=== PATIENT | female | born 1995 | race Caucasian/White ===

== ENCOUNTER 2018-07-23 13:44 | Emergency (ER) | payer BC, OTHER, SELFPAY ==
[2018-07-23 13:48] VITALS: BP 107/75; PULSE 73; RESP 18; TEMP 36.4; O2SAT 100; BMI 23.8
--- NOTE | 2018-07-23 14:11 | DI.RAD.S_ITS ---
PROCEDURE: XR CHEST 1V INDICATIONS: chest pain TECHNIQUE: One view of the chest was acquired. COMPARISON: None. FINDINGS: Surgical changes and devices: None. Lungs and pleura: No pleural effusions or pneumothorax. Lungs are clear. Mediastinum: Mediastinal contours appear normal. Heart size is normal. Bones and chest wall: No suspicious bony lesions. Overlying soft tissues appear unremarkable. IMPRESSION: No definite acute cardiopulmonary process is evident. Dictated by: Wilton Holt M.D. on 07/23/2018 at 13:42 Approved by: Wilton Holt M.D. on 07/23/2018 at 13:44
[2018-07-23 14:27] LABS: INR 1.1 (0.9-1.3); Prothrombin Time 12.3 SECONDS (10.1-12.7)
[2018-07-23 14:30] VITALS: BP 110/63; PULSE 87; RESP 16; O2SAT 100
[2018-07-23 14:30] LABS: PTT Partial Thromboplastin Tim 31 SECONDS (26.4-36.2)
[2018-07-23 14:31] LABS: Add Manual Diff / Slide Review NO; Basophils Percent Auto 0.7 % (0-2); Eosinophils Percent Auto 3.3 % (2-4); Hematocrit 40.3 % (36-46); Hemoglobin 13.9 g/dL (12.0-16.0); Lymphocytes Percent Auto 26.3 % (25-40); Mean Corpuscular HGB Conc 34.6 % (30-36); Mean Corpuscular Hemoglobin 31.3 PG (26-34); Mean Corpuscular Volume 90.5 fL (80-100); Monocytes Percent Auto 10.8 % (3-14); Neutrophils Absolute Auto 2800 /uL (3000-5900); Neutrophils Percent Auto 58.9 % (50-75); Platelet Count 158 X10^3/uL (150-400); Red Blood Cell Count 4.45 X10^6/uL (4.0-5.2); Red Cell Distribution Width 13.2 % (11.6-14.8); White Blood Cell Count 4.7 X10^3/uL (4.5-11.0)
[2018-07-23 14:35] LABS: Alanine Aminotransferase 19 IU/L (9-52); Albumin 4.6 g/dL (3.5-5.0); Albumin Globulin Ratio 1.4 (1.0-2.8); Alkaline Phosphatase 49 U/L (38-126); Aspartate Aminotransferase 25 IU/L (14-36); BUN Creatinine Ratio 13.3 (6-22); Bilirubin Total 0.7 mg/dL (0.2-1.3); Blood Urea Nitrogen 8 mg/dL (7-17); Calcium 8.9 mg/dL (8.4-10.2); Carbon Dioxide 26 mmol/L (22-32); Chloride 105 mmol/L (98-107); Creatine Kinase 102 U/L (30-135); Estimated Glomerular Filt Rate > 60.0 mL/min (>60); Globulin 3.2 g/dL (1.7-4.1); Glucose 101 mg/dL (70-100); HEMOLYSIS < 15 (0-50); Lipase 47 U/L (23-300); Potassium 3.9 mmol/L (3.4-5.1); Sodium 143 mmol/L (137-145); Total Protein 7.8 g/dL (6.3-8.2)
--- NOTE | 2018-07-23 14:38 | ED.CHESTPAIN ---
HPI - Chest Pain <Zuleima Cerda PA-C - Last Filed: 07/23/18 19:21> General Chief Complaint: Chest Pain Stated Complaint: CHEST PAIN, RT ARM GOING NUMB Time Seen by Provider: 07/23/18 14:00 Source: patient Mode of arrival: ambulatory Limitations: no limitations History of Present Illness HPI narrative: The this 22-year-old generally healthy female comes in due to worsening chest pain. She states that she has had this for a week. It is constant. She saw her primary care provider on Thursday and was prescribed Zantac for possible reflux, also an inhaler for asthma. She states that she felt a little bit of wheezing and shortness of breath, but that is better with the inhaler. She only needs to use that occasionally for her asthma. She states that she has not had improvement in the chest pain was and tach, and last night she felt a little bit dizzy. This morning she had some nausea and shooting pain in her shoulder blades and radiating to her right arm. She has not had vomiting. She has not had palpitations and she does not feel short of breath currently. She has not had fever. She did have cold symptoms a few weeks ago but states these resolved well before the pain started. She has not had rash or any other new symptoms with this. She denies any exacerbating or alleviating features for pain. She denies any recent travel. She denies any history of blood clots. She denies any possibility of (has Mirena and her is deployed). She believes there was a history of blood clots in her father, not her mother or 3 siblings. Related Data On Oral Contraceptives: No Home Medications Medication Instructions Recorded Confirmed albuterol sulfate [ProAir HFA] 1 puff INHALATION DIRECTED 07/23/18 07/23/18 ranitidine HCl 150 - 300 mg PO DAILY PRN MDD 300 07/23/18 07/23/18 mg Previous Rx's Medication Instructions Recorded cyclobenzaprine 10 mg PO TID PRN #12 tab 07/23/18 meloxicam 15 mg PO DAILY #14 tab 07/23/18 Allergies Allergy/AdvReac Type Severity Reaction Status Date / Time No Known Drug Allergies Allergy Verified 07/23/18 13:55 Review of Systems <Zuleima Cerda PA-C - Last Filed: 07/23/18 19:21> Review of Systems All systems reviewed & are unremarkable except as noted in HPI and below Exam <BRIELLE Wallis Last Filed: 07/23/18 19:21> Narrative Exam Narrative: GENERAL APPEARANCE: Patient sitting comfortably, in no distress. HEENT: PERRL, EOMI NECK: Supple LUNGS: Clear to auscultation bilaterally. CHEST: No tenderness to palpation over the ribs or sternum HEART: Rate and rhythm regular, normal S1 and S2, no S3 or S4. ABDOMEN: Soft, nontender, nondistended, bowel sounds present x 4 quadrants, no masses palpable, no hepatosplenomegaly. EXTREMITIES: No edema, no cyanosis, no calf tenderness DERMATOLOGIC: No jaundice or exanthem NEUROLOGIC: Alert and oriented with normal speech and coordination MUSCULOSKELETAL: She has mild tenderness across the superior trapezius areas and right cervical strap musculature. No tenderness over the cervical spine. She has some tenderness with full C-spine lateral bend, less so with rotation. Normal flexion. She has full range of motion of the shoulders but some tenderness on full internal rotation. Initial Vital Signs Initial Vital Signs: Vital Signs Temperature 97.5 F L 07/23/18 13:48 Pulse Rate 73 07/23/18 13:48 Respiratory Rate 18 07/23/18 13:48 Blood Pressure 107/75 07/23/18 13:48 Pulse Oximetry 100 07/23/18 13:48 <Sin Mendoza DO - Last Filed: 07/24/18 07:05> Initial Vital Signs Initial Vital Signs: Vital Signs Temperature 97.5 F L 07/23/18 13:48 Pulse Rate 73 07/23/18 13:48 Respiratory Rate 18 07/23/18 13:48 Blood Pressure 107/75 07/23/18 13:48 Pulse Oximetry 100 07/23/18 13:48 Course <BRIELLE Wallis Last Filed: 07/23/18 19:21> Additional Information: Some tenderness was elicited with range of motion and patient had palpably tender and tight musculature. She felt significantly improved after Toradol and muscle relaxant, so will continue these. Reviewed findings on workup today which are unremarkable. She agrees to return if any acutely worsening symptoms, otherwise will follow up with PCP next week to assess progress Orders Ordered: Discontinued Medications Cyclobenzaprine HCl (Flexeril) 10 mg PO NOW ONE Stop: 07/23/18 15:10 Last Admin: 07/23/18 15:22 Dose: 10 mg Ketorolac Tromethamine (Toradol) 30 mg IV NOW ONE Stop: 07/23/18 15:10 Last Admin: 07/23/18 15:23 Dose: 30 mg Vital Signs - 8 hr 07/23/18 13:48 07/23/18 14:30 07/23/18 15:30 Temperature 97.5 F L Pulse Rate 73 87 76 Respiratory Rate 18 16 15 Blood Pressure 107/75 Blood Pressure [Left Arm] 110/63 107/67 Pulse Oximetry 100 100 99 07/23/18 16:40 Temperature 98.6 F Pulse Rate 80 Respiratory Rate 18 Blood Pressure 99/44 L Blood Pressure [Left Arm] Pulse Oximetry 100 <Sin Mendoza DO - Last Filed: 07/24/18 07:05> Orders Ordered: Discontinued Medications Cyclobenzaprine HCl (Flexeril) 10 mg PO NOW ONE Stop: 07/23/18 15:10 Last Admin: 07/23/18 15:22 Dose: 10 mg Ketorolac Tromethamine (Toradol) 30 mg IV NOW ONE Stop: 07/23/18 15:10 Last Admin: 07/23/18 15:23 Dose: 30 mg Vital Signs - 8 hr 07/23/18 13:48 07/23/18 14:30 07/23/18 15:30 Temperature 97.5 F L Pulse Rate 73 87 76 Respiratory Rate 18 16 15 Blood Pressure 107/75 Blood Pressure [Left Arm] 110/63 107/67 Pulse Oximetry 100 100 99 07/23/18 16:40 Temperature 98.6 F Pulse Rate 80 Respiratory Rate 18 Blood Pressure 99/44 L Blood Pressure [Left Arm] Pulse Oximetry 100 MDM - Chest Pain <Zuleima Cerda PA-C - Last Filed: 07/23/18 19:21> Lab Data Attestation: I reviewed the patient's lab results. Result diagrams: 07/23/18 14:00 07/23/18 14:00 Lab Results 07/23/18 07/23/18 07/23/18 Range/Units 14:00 14:00 14:00 WBC 4.7 (4.5-11.0) X10^3/uL RBC 4.45 (4.0-5.2) X10^6/uL Hgb 13.9 (12.0-16.0) g/dL Hct 40.3 (36-46) % MCV 90.5 (80-100) fL MCH 31.3 (26-34) PG MCHC 34.6 (30-36) % RDW 13.2 (11.6-14.8) % Plt Count 158 (150-400) X10^3/uL Neut % (Auto) 58.9 (50-75) % Lymph % (Auto) 26.3 (25-40) % [place] % (Auto) 10.8 (3-14) % Eos % (Auto) 3.3 (2-4) % Baso % (Auto) 0.7 (0-2) % Neut # (Auto) 2800 L (2703-1319) /uL PT 12.3 (10.1-12.7) SECONDS INR 1.1 (0.9-1.3) APTT 31 (26.4-36.2) SECONDS D-Dimer < 200 (<230) ng/mL Sodium 143 (137-145) mmol/L Potassium 3.9 (3.4-5.1) mmol/L Chloride 105 (98-107) mmol/L Carbon Dioxide 26 (22-32) mmol/L BUN 8 (7-17) mg/dL Creatinine 0.60 (0.52-1.04) mg/dL Estimated GFR > 60.0 (>60) mL/min BUN/Creatinine Ratio 13.3 (6-22) Glucose 101 H (70-100) mg/dL Calcium 8.9 (8.4-10.2) mg/dL Total Bilirubin 0.7 (0.2-1.3) mg/dL AST 25 (14-36) IU/L ALT 19 (9-52) IU/L Alkaline Phosphatase 49 (38-126) U/L Total Creatine Kinase 102 (30-135) U/L CK-MB (CK-2) 0.85 (<2.37) ng/mL CK-MB (CK-2) Rel Index 0.8 L (1.5-5.0) % Troponin I < 0.012 (0.01-0.034) ng/mL Total Protein 7.8 (6.3-8.2) g/dL Albumin 4.6 (3.5-5.0) g/dL Globulin 3.2 (1.7-4.1) g/dL Albumin/Globulin Ratio 1.4 (1.0-2.8) Lipase 47 (23-300) U/L Imaging Data Chest x-ray: Radiologist's impression: [address] [address] XRay Report Signed Patient: SMILEY PHAN MMR#: [id number] : 1995Acct:[id number] Age/Sex: 22 / FDate of Service: 07/23/18 Loc: ED Accession Number: [id number] Procedure: XR chest 1V Ordering Provider: Zuleima Cerda P.A-C PROCEDURE: XR CHEST 1V INDICATIONS: chest pain TECHNIQUE: One view of the chest was acquired. COMPARISON: None. FINDINGS: Surgical changes and devices: None. Lungs and pleura: No pleural effusions or pneumothorax. Lungs are clear. Mediastinum: Mediastinal contours appear normal. Heart size is normal. Bones and chest wall: No suspicious bony lesions. Overlying soft tissues appear unremarkable. IMPRESSION: No definite acute cardiopulmonary process is evident. Dictated by: Wilton Holt M.D. on 07/23/2018 at 13:42 Approved by: Wilton Holt M.D. on 07/23/2018 at 13:44 ECG Data Attestation: I personally reviewed and interpreted this ECG as follows: <Sin Mendoza DO - Last Filed: 07/24/18 07:05> Lab Data Lab Results 07/23/18 07/23/18 07/23/18 Range/Units 14:00 14:00 14:00 WBC 4.7 (4.5-11.0) X10^3/uL RBC 4.45 (4.0-5.2) X10^6/uL Hgb 13.9 (12.0-16.0) g/dL Hct 40.3 (36-46) % MCV 90.5 (80-100) fL MCH 31.3 (26-34) PG MCHC 34.6 (30-36) % RDW 13.2 (11.6-14.8) % Plt Count 158 (150-400) X10^3/uL Neut % (Auto) 58.9 (50-75) % Lymph % (Auto) 26.3 (25-40) % [place] % (Auto) 10.8 (3-14) % Eos % (Auto) 3.3 (2-4) % Baso % (Auto) 0.7 (0-2) % Neut # (Auto) 2800 L (7262-6012) /uL PT 12.3 (10.1-12.7) SECONDS INR 1.1 (0.9-1.3) APTT 31 (26.4-36.2) SECONDS D-Dimer < 200 (<230) ng/mL Sodium 143 (137-145) mmol/L Potassium 3.9 (3.4-5.1) mmol/L Chloride 105 (98-107) mmol/L Carbon Dioxide 26 (22-32) mmol/L BUN 8 (7-17) mg/dL Creatinine 0.60 (0.52-1.04) mg/dL Estimated GFR > 60.0 (>60) mL/min BUN/Creatinine Ratio 13.3 (6-22) Glucose 101 H (70-100) mg/dL Calcium 8.9 (8.4-10.2) mg/dL Total Bilirubin 0.7 (0.2-1.3) mg/dL AST 25 (14-36) IU/L ALT 19 (9-52) IU/L Alkaline Phosphatase 49 (38-126) U/L Total Creatine Kinase 102 (30-135) U/L CK-MB (CK-2) 0.85 (<2.37) ng/mL CK-MB (CK-2) Rel Index 0.8 L (1.5-5.0) % Troponin I < 0.012 (0.01-0.034) ng/mL Total Protein 7.8 (6.3-8.2) g/dL Albumin 4.6 (3.5-5.0) g/dL Globulin 3.2 (1.7-4.1) g/dL Albumin/Globulin Ratio 1.4 (1.0-2.8) Lipase 47 (23-300) U/L Discharge Plan Departure Patient Disposition: Home Clinical Impression: Chest pain, Bilateral shoulder pain Discharge Date/Time: 07/23/18 16:40 Interventions: ED Discharge Assessment Last Done: 07/23/18 16:40 Instructions: DI for Atypical Chest Pain Activity Restrictions/Additional Instructions: Based on testing today as well as exam findings and your improvement with the medications that we tried, I think your shoulder and chest pain are musculoskeletal. There does not appear to be an acute heart or lung problem from what we can see, though your recent upper respiratory infection and asthma certainly may contribute as well as this can make the structures in your chest inflamed. You should return as we talked about if you have any acutely worsening symptoms over the weekend. Otherwise, please remain off of work. Take the prescription anti-inflammatory that I have prescribed for you (meloxicam) to help with pain, and the muscle relaxant cyclobenzaprine as needed (do not drive with the muscle relaxant as it could make you sleepy). Please call your primary care provider and follow up in the next few days for recheck Prescriptions: New cyclobenzaprine 10 mg tablet 10 mg PO TID PRN (Reason: muscle tightness/pain) Qty: 12 RF: 0 meloxicam 15 mg tablet 15 mg PO DAILY Qty: 14 RF: 0 No Action ranitidine HCl 150 mg tablet 150 - 300 mg PO DAILY MDD 300 mg PRN (Reason: Heartburn) RF: 0 albuterol sulfate [ProAir HFA] 90 mcg/actuation HFA aerosol inhaler 1 puff Inhalation DIRECTED RF: 0 Referrals: [facility] [Provider Group] <Sin Mendoza DO - Last Filed: 07/24/18 07:05> [facility] ED Attending Tomasa Attestation: I was immediately available in the department for consultation. Documentation has been reviewed. I agree with assessment and plan.
[2018-07-23 14:48] LABS: Troponin I < 0.012 ng/mL (0.01-0.034)
[2018-07-23 14:50] LABS: CKMB % Relative Index 0.8 % (1.5-5.0); Creatine Kinase MB 0.85 ng/mL (<2.37)
[2018-07-23 15:10] LABS: D Dimer < 200 ng/mL (<230)
[2018-07-23] MEDS: CYCLOBENZAPRINE 10 MG TABLET PO (15:22)
[2018-07-23] MEDS: KETOROLAC 60 MG/2 ML VIAL 30 MG IV (15:23)
[2018-07-23 15:30] VITALS: BP 107/67; PULSE 76; RESP 15; O2SAT 99
[2018-07-23 16:40] VITALS: BP 99/44; PULSE 80; RESP 18; TEMP 37; O2SAT 100
== END 2018-07-23 16:40 | disposition home or self-care (01) ==
PROVIDERS: Emergency Provider Internal Medicine
DX: M25.511 Pain in right shoulder (principal); M25.512 Pain in left shoulder; R07.89 Other chest pain
CPT/HCPCS: 36591; 71045; 80053; 82550; 82553; 83690; 84484; 85025; 85379; 85610; 85730; 93005; 96374; 99283; 99285; J1885